=== PATIENT | male | born 1955 | race Caucasian/White ===

== ENCOUNTER 2023-07-01 10:19 | Outpatient (CLI) | payer MEDICARE, OTHER, SELFPAY | END 2023-07-01 10:20 | disposition home or self-care (01) | PROVIDERS: PCP Family Medicine; Visit Provider Family Medicine | DX: E78.5 Hyperlipidemia, unspecified (principal); Z12.5 Encounter for screening for malignant neoplasm of prostate | CPT/HCPCS: 80048; 80061; 84153; 84460 ==

== ENCOUNTER 2024-01-30 09:13 | Outpatient (CLI) | payer MEDICARE, OTHER, SELFPAY | END 2024-01-30 09:14 | disposition home or self-care (01) | LOC: FBOREF 09:14 | PROVIDERS: PCP Family Medicine; Visit Provider Family Medicine | DX: Z13.220 Encounter for screening for lipoid disorders (principal) | CPT/HCPCS: 80076 ==

== ENCOUNTER 2024-08-10 11:02 | Outpatient (CLI) | payer MEDICARE, OTHER, SELFPAY | END 2024-08-10 11:03 | disposition home or self-care (01) | PROVIDERS: PCP Family Medicine; Visit Provider Family Medicine | DX: E78.2 Mixed hyperlipidemia (principal); N40.0 Benign prostatic hyperplasia without lower urinary tract symptoms; Z12.5 Encounter for screening for malignant neoplasm of prostate | CPT/HCPCS: 80048; 80061; 84460; G0103 ==

== ENCOUNTER 2025-04-18 11:11 | Outpatient (CLI) | payer MEDICARE, OTHER, SELFPAY | END 2025-04-18 11:12 | disposition home or self-care (01) | LOC: FBOREF 11:13 | PROVIDERS: PCP Family Medicine; Visit Provider Family Medicine | DX: N40.0 Benign prostatic hyperplasia without lower urinary tract symptoms (principal); Z12.5 Encounter for screening for malignant neoplasm of prostate | CPT/HCPCS: G0103 ==

== ENCOUNTER 2025-10-30 08:31 | Outpatient (CLI) | payer MEDICARE, OTHER, SELFPAY | END 2025-10-30 08:32 | disposition home or self-care (01) | PROVIDERS: PCP Family Medicine; Visit Provider Family Medicine | DX: E78.2 Mixed hyperlipidemia (principal) | CPT/HCPCS: 80048; 80061; 84460 ==